=== PATIENT | female | born 1960 | race Caucasian/White ===

== ENCOUNTER → 2024-09-16 | Outpatient (CLI) | payer MEDICARE, BC, SELFPAY | END | disposition home or self-care (01) | PROVIDERS: PCP Family Medicine; Referring Provider Family Medicine; Visit Provider Family Medicine | DX: N39.0 Urinary tract infection, site not specified (principal) | CPT/HCPCS: 87077; 87086; 87186 ==

== ENCOUNTER → 2025-05-19 | Outpatient (CLI) | payer MEDICARE, SELFPAY ==
--- NOTE | 2025-05-19 13:30 | XR_ITS ---
Examination: Screening digital mammography, bilateral Computer aided detection 3-D breast Tomosynthesis, bilateral Date and time of exam: May 19, 2025 1520 hours Compared to mammograms dating to 07/13/2020 Indication: Screening Technique: Nonmagnified MLO, CC views of the breasts to been obtained, reconstructed from 3-D Tomosynthesis images. R2 computer aided detection program utilized for evaluation of suspicious masses and/or abnormal calcifications. 3-D Tomosynthesis images obtained. Findings: Scattered areas of fibroid rather density. Benign calcifications. No interval suspicious masses Impression: BI-RADS category II: Benign Findings. Recommend 1 year follow-up mammogram.
== END | disposition home or self-care (01) ==
PROVIDERS: PCP Internal Medicine; Referring Provider Internal Medicine; Visit Provider Internal Medicine
DX: Z12.31 Encounter for screening mammogram for malignant neoplasm of breast (principal); R92.323 Mammographic fibroglandular density, bilateral breasts; R92.1 Mammographic calcification found on diagnostic imaging of breast
CPT/HCPCS: 77063; 77067

== ENCOUNTER 2025-10-19 08:38 | Outpatient (AMB) | payer MEDICARE, SELFPAY ==
[2025-10-19 09:01] VITALS: BP 147/101; PULSE 97; RESP 18; TEMP 35.8; O2SAT 96; BMI 33.3
--- NOTE | 2025-10-19 09:01 | PD.ORTHCLVIS ---
Vital signs 10/19/25 09:01 Height 1.65 m Height Method Measured Weight 90.747 kg Weight Measurement Method Standing Scale BMI 33.3 BP 147/101 H Blood Pressure Source Automatic Cuff Blood Pressure Location Left Upper Arm Position Sitting Respiration 18 Pulse 97 Pulse Source Monitor Temp 96.4 F L Temp Source Temporal Artery Scan Pulse Oximetry (%) 96 Oxygen Delivery Method Room Air Med/Allergies Allergies & Medications Allergies amoxicillin Allergy (Intermediate, Verified 10/19/25 09:02) RASH AND RAPID HEARTRATE latex Allergy (Intermediate, Verified 10/19/25 09:02) RASH meperidine Allergy (Intermediate, Verified 10/19/25 09:02) Itching morphine Allergy (Intermediate, Verified 10/19/25 09:02) RASH Sulfa (Sulfonamide Antibiotics) Allergy (Intermediate, Verified 10/19/25 09:02) ITCH ALL OVER nitrofurantoin (From Macrobid) Allergy (Verified 10/19/25 09:02) Rash Medication Reconciliation albuterol sulfate 90 mcg/actuation aerosol inhaler 2 puff inhalation Q6H PRN Wheezing 02/13/21 [History Confirmed 10/19/25] fluticasone propionate 50 mcg/actuation nasal spray,suspension 1 spray intranasal QDAY PRN Allergic Symptoms 02/13/21 [History Confirmed 10/19/25] ciprofloxacin HCl 500 mg tablet 500 mg PO BID #14 tabs 02/14/21 [Rx Confirmed 10/19/25] hydrocodone 5 mg-acetaminophen 325 mg tablet 1 tab PO Q6H PRN pain #30 tabs 02/14/21 [Rx Confirmed 10/19/25] Exam Exam Breathing is nonlabored. Patient has a normal mood and affect. Bilateral extremities were evaluated and demonstrates sensation intact to light touch. Palpable pedal pulses are present. No significant edema is present. Bilateral hips were examined. The patient has no pain with log roll of the hips. Internal rotation to 30 degrees and external rotation to 30 degrees is painless. Negative FADIR. Left knee was examined today. The left knee is in reasonable alignment. Range of motion from 0-120 degrees. Knee is stable to varus and valgus as well as AP translation with <5mm. Patient has a negative McMurrays. There is no pain with patellofemoral compression and no crepitus noted. The knee is nontender to palpation. The right knee was also examined. Right knee incision is clean dry and intact. Range of motion is 5 degrees of hyperextension to 120 degrees. There is both AP and medial lateral instability Greater than 5 mm X-rays demonstrate a cemented total knee replacement in good alignment position Assessment and Plan Problem List (1) Other instability, right knee: Status: Acute Plan: Patient is a 65-year-old female with right knee instability status post right total knee replacement 8 years ago. We discussed that we first need to rule out infection with an ESR and CRP. Once this is ruled out we can discuss what to do. She has failed conservative treatment and has been 8 years since his surgery. I do suspect his instability and we will have to follow-up with surgery. If I would use a medial stabilized poly for her an increase in thickness. 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 ([id number]) MA Intake Visit Data Collection New Patient or Established: Established Patient (seen at [facility] within 3 years) Reason for Visit:: OSTEOARTHRITIS RIGHT KNEE PAIN Seen by Clinical Staff ONLY (RN/MA): No Activated Sludge Operator Required: No PCP or OBGYN visit in last 3 months: Yes Hx Now: No Do You Feel Safe at Home: Yes Authorities Contacted: N/A Questionairres Past Medical History Past Medical History Have you ever been diagnosed with any of the following: Neurological Problems Seizures: No Cardiology Problems Congestive Heart Failure: No Edema: No Cellulitis: No Hypertension: No Varicose Veins: No Respiratory Problems Chronic Obstructive Pulmonary Disease (COPD): No Pneumonia: No Tuberculosis: No Sleep Apnea: No Stomache/Intestinal Problems Hepatitis: No Diverticulitis: Yes Hemorrhoids: Yes (NO SURG) Obesity: Yes Genital/Urinary Problems Renal Disease: Yes (? 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 DROPS) Endocrine Problems Diabetes Mellitus Type 1: No Diabetes Mellitus Type 2: No Other Problems Hospitalization: No Shingles: No Falls: No Blood Transfusions: No Anesthesia Reactions: No Chemotherapy: No Radiation Therapy: No MRSA: No Chicken Pox: Yes Measles: Yes Mumps: No Cancer: No Surgical History Hysterectomy: Yes ([facility]AN[facility] WITH PARTIAL OVARY REM) Pacemaker: No Subjective Visit Visit for: follow up visit and knee Immunization / Flu Flu Vaccine in the Last 12 Months: Yes Flu Vaccine Exclusion Criteria: Already Received History of Present Illness Chief complaint: OSTEOARTHRITIS RIGHT KNEE PAIN Date of injury / onset of symptoms: 5 YEARS AGO Is a 65-year-old female with 8 years of right knee pain. She had a right total knee replacement in 2017 and reports that the knee never felt the same. She reports the knee feels loose. She reports that she has fallen and that it swells up on occasion. Personal History Occupation: RETIRED Red flag PMH: none BMI Counceling provided: No Pain Pain level (0-10): 5 Pain location: inside (medial), outside (lateral), anterior and posterior Pain quality: aching and other (specify) (SORE) Pain timing: increases with activity Associated signs & symptoms: weakness and stiffness Ambulatory data Ambulatory device: cane Treatments Improvement with previous injections: No Improvement with PT: No Improvement with NSAIDS: no Review of Systems Review of Systems: All systems negative unless otherwise noted in HPI.
--- NOTE | 2025-10-19 09:09 | XR_ITS ---
EXAMINATION: AP knees standing bilateral single view Right knee PA lateral axial 3 views TECHNIQUE: Bilateral AP knees standing single view Right knee PA standing flexion, standing lateral, axial right knee 3 views total 4 views Date and time: October 19, 2025, 0923 hours INDICATIONS: Right knee replacement 2014 with knee pain FINDINGS: Total right knee arthroplasty. Satisfactory alignment. No loosening of the prosthetic components. No patellar dislocation Mild to moderate narrowing medial joint space left knee IMPRESSION: Total right knee arthroplasty with satisfactory alignment
== END 2025-10-19 09:54 | disposition home or self-care (01) ==
LOC: HODSRG 08:38
PROVIDERS: PCP Family Medicine; Referring Provider Family Medicine; Supervising Provider Orthopaedic Surgery Adult Reconstructive Orthopaedic Surgery; Visit Provider Orthopaedic Surgery Adult Reconstructive Orthopaedic Surgery
DX: M25.361 Other instability, right knee (principal); M25.561 Pain in right knee; Z96.651 Presence of right artificial knee joint; E66.9 Obesity, unspecified; Z68.33 Body mass index [BMI] 33.0-33.9, adult
CPT/HCPCS: 73564; 99203; G0463